=== PATIENT | male | born 1955 | race Caucasian/White ===

== ENCOUNTER 2016-07-01 16:25 | Emergency (ER) | payer OTHER ==
--- NOTE | 2016-07-01 17:56 | DIAGNOSTIC IMAGING REPORT ---
PROCEDURE: XR CHEST 2 VIEW INDICATION: CHEST PAIN, initial encounter TECHNIQUE: PA and lateral view. COMPARISON: None. FINDINGS: Lungs are clear. Cardiovascular structures are normal. Bony thorax is unremarkable. IMPRESSION: 1. Negative chest.
--- NOTE | 2016-07-01 19:17 | ED NURSING NOTES ---
Clinical Report - Nurses [facility] [address] [place] [address] 07/01/2016 16:27 [id number] TRI[facility] Triage time 16:31 Jul 01 2016. Acuity: LEVEL 3. Chief Complaint: CHEST PAIN and (High blood pressure). 16:42 07/01/16. Alert. No acute distress. SEPSIS SCREEN: Sepsis Screen. Negative (no infection suspected/documented). ROCHELLE COMA SCORE: [place] Coma Scale: 15- eyes open spontaneously (4); best verbal response- oriented x 4 (5); best motor response- obeys commands (6). --16:42 Lisbeth Quinonez 16:31 07/01/16. BP: 160/105. HR: 77. RR: 16. O2 saturation: 96%. Temp: 97.5 F (oral). Pain level now: 12/01. --16:42 Lisbeth Quinonez. Weight: 111.1 kg stated. Height/Length: 68 inches Per Patient. BMI: 37.3. --16:41 Lisbeth Quinonez. Medications Naproxen Oral 500 mg, 2x a day. --16:38 Lisbeth Quinonez Doxazosin Mesylate Oral (Tablet 1 mg) 1 tablet, daily. --16:38 Lisbeth Quinonez Gabapentin Oral 300 mg, daily. --16:39 Lisbeth Quinonez. Medication/allergy information source: the patient. --16:42 Lisbeth Quinonez. Allergies Tylenol. --16:39 Lisbeth Quinonez. History Arrived by private vehicle. Historian: patient. Accompanied by family. Primary physician (Collins). This started today. Onset. (When patient woke up). ( Pt measured his blood pressure and it measured about 170 systolic, when normally it runs about 120. Has had an upset stomach before. Has a headache that is worse than his normal headaches today, but hasn't taken medication for it.). He has had nausea. No difficulty breathing, vomiting, fever or cough. Treatment PUTTY MIXER: None. PAST MEDICAL HX: Hypertension. No history of diabetes mellitus, heart disease or lung disease. Immunizations: up-to-date. SOCIAL HX: Never smoker. No alcohol use or drug use. FALL RISK ASSESSMENT: Fall risk assessment completed. No fall risk identified. NUTRITIONAL RISK ASSESSMENT: The nutritional risk assessment revealed no deficiencies. FUNCTIONAL ASSESSMENT: Functional assessment: no impairments noted. LEARNING NEEDS ASSESSMENT: The learning needs assessment revealed no barriers. SKIN INTEGRITY ASSESSMENT: Skin integrity risk assessment completed. No skin integrity risk identified. --16:42 Lisbeth Quinonez. PROBLEMS: Arthritis. Hypertension. Otitis Externa. --16:40 Lisbeth Quinonez. ADDITIONAL SURGERIES: Appendectomy. Foot. --16:40 Lisbeth Quinonez. Assessment The patient states feels the same. GENERAL / NEURO / PSYCH: Alert. Oriented X 4. Appears in no acute distress. Patient appears calm and cooperative. RESPIRATORY: Respirations not labored. Chest nontender. CVS: Capillary refill less than 2 seconds. GI / : Abdomen soft and nontender. SKIN: Mucous membranes are pink. Skin is warm and dry. --16:42 Lisbeth Quinonez. Interventions ID band on patient. To waiting room. --16:42 Lisbeth Quinonez. NURSING PROGRESS NOTES 17:48 07/01/2016 Site #1 started via IV in the right antecubital space with an 20g angiocath, with aseptic technique and good blood return; one attempt. Blood drawn: rainbow set. Labeled in the presence of the patient and sent to the lab. Saline lock flushed with 10 mL saline. --17:48 Milena Cantu EKG time: (1813). EKG was ordered, performed by a tech and shown to the ED physician. --18:14 Deidre Salcedo ER Tech1 18:39 07/01/16. BP: 145/93. HR: 68. O2 saturation: 98%. --18:39 Liang Tovar 18:44 07/01/2016 Toradol IVP 30 mg given over 1 minute(s) via site #1. Allergies verified and confirmed 5 rights. IV patency established. IV site checked: no pain, redness, or swelling. IV flushed thoroughly pre- and post-medication administration. IVP given by RN. --18:44 Milena Cantu Reassessment after medication administered. He has had no adverse reaction. Overall patient status is the same- he states feels the same. --19:16 Milena Cantu 19:15 07/01/16. BP: 151/90. HR: 65. RR: 16. O2 saturation: 97%. --19:16 Milena Cantu. DISPOSITION / DISCHARGE 19:32 07/01/2016 Site #1 removed upon discharge. Pressure dressing applied. --19:32 Milena Cantu Departure time: 1929. Condition at departure: unchanged and stable. No learning barriers present. Discharge instructions provided and reviewed with the patient and family. Reviewed medication(s). Patient and family verbalized understanding. Written instructions provided in [place] Islander. The patient was discharged by the physician retail assistant manager. He was discharged home and accompanied by family. He left the Emergency Department ambulatory and via private vehicle. Family member driving. --19:33 Milena Cantu. Locked/Released at 07/01/2016 19:33 by Milena Cantu,
--- NOTE | 2016-07-01 19:17 | ED CLINICAL REPORT ---
Clinical Report - Physicians/Mid Levels [facility] [address] [place] [address] 07/01/2016 16:27 Patient: KHALIF AMEZQUITA Time Seen: 17:02; initial patient contact. Arrived- By private vehicle. Historian- patient. HISTORY OF PRESENT ILLNESS Chief Complaint: maldonado/ elevated bp. BLOOD PRESSURE ELEVATED. This started yesterday and is still present. (Patient reports 170 systolic blood pressure home prior to arrival, reports headache over the last 2 years, worse over the last 2 days. No injury. No emesis. Some nausea at times. Denies any active chest pain or shortness of breath. Reports he does take his antihypertensive medications, which usually makes his headache better. Denies any fevers or chills or any recent illness. Reports the headache is similar to his regular daily headaches, generalized on the left side front, as well as posteriorly.). REVIEW OF SYSTEMS No fever, nasal congestion, cough, chest pain or vomiting. No diarrhea or chills. He has had nausea. No difficulty with ambulation. All systems otherwise negative, except as recorded above. SOCIAL HISTORY Never smoker. No alcohol use or drug use. ADDITIONAL NOTES The nursing notes have been reviewed. PHYSICAL EXAM Vital Signs: 07/01/2016 16:31 BP: 160/105. HR: 77. RR: 16. O2 saturation: 96%. Temp: 97.5 F. Pain level now: 7/10. Appearance: Alert. No apparent distress. ENT: Ears normal. Nose normal. CVS: Normal heart rate and rhythm. Rhythm normal. No extra heart sounds. Respiratory: No respiratory distress. Breath sounds normal. No accessory muscle use. Abdomen: No visible injury. Soft. No abdominal tenderness, rebound tenderness or femoral pulse deficit. The bowel sounds are not abnormal. Back: Normal inspection. No CVA tenderness. Skin: Normal skin color. Neuro: Oriented X 3. No motor deficit. LABS, X-RAYS, AND EKG EKG: EKG time: (1813). No acute process. No acute ischemia. Normal EKG. Rate: 72. Normal P waves. Normal MIMI. Normal QRS complex. Normal axis. Chest X-ray: (IMPRESSION: 1. Negative chest. Electronically Final signed by:Derek Chi MD 07/01/2016 5:56:03 PM). CT Head: Normal study. (neg as discussed with DR. Chi). Laboratory Tests: CBC w Diff: (ONUR: 07/01/2016 17:45) ( [facility] Final results Test Result Flag Units (Reference) WHITE BLOOD COUNT 7.0 K/uL (4.5-11.5) RED BLOOD COUNT 4.84 M/uL (4.50-5.90) HEMOGLOBIN 15.6 gm/dL (13.5-17.5) HEMATOCRIT 45.3 % (41.0-53.0) MEAN CELL VOLUME 94 fL (80-100) MEAN CORPUSCULAR HGB 32 pg (26-34) MEAN CORPUSCULAR HGB CONC 35 g/dL (31-37) RED CELL DISTRIBUTION WIDTH 13.0 % (11.6-14.8) PLATELET COUNT 181 K/uL (150-400) NEUTROPHIL % 60.9 % (50-75) LYMPH % 28.9 % (25-40) MONO % 6.4 % (3-14) EOSINOPHIL % 3.3 % (0-4) BASOPHIL % 0.5 % (0-2) CHEM 13 PANEL: (ONUR: 07/01/2016 17:45) ( [facility] 07/01/2016 18:23) Final results Test Result Flag Units (Reference) GLUCOSE 101 mg/dL (70-110) BUN 21 H mg/dL (7-18) CREATININE 0.9 mg/dL (0.6-1.3) Estimated GFR >60 mL/min Estimated GFR- >60 mL/min Note: Persistent reduction over 3 months in eGFR<60 mL/min/1.73 m2 defines CKD. Patients with eGFR values>=60 mL/min/1.73 m2 may also have CKD if evidence ofpersistent proteinuria. Additional information may be foundat www.kidney.org. SODIUM 143 mmol/L (136-145) POTASSIUM 4.2 mmol/L (3.5-5.1) CHLORIDE 108 H mmol/L (98-107) CARBON DIOXIDE 24 mmol/L (21-32) CALCIUM 9.2 mg/dL (8.5-10.1) TOTAL PROTEIN 7.6 g/dL (6.4-8.2) ALBUMIN 4.5 g/dL (3.3-5.0) BILIRUBIN, TOTAL 0.6 mg/dL (0.0-1.0) ALKALINE PHOSPHATASE 70 U/L (46-116) AST (SGOT) 29 U/L (15-37) ALT (SGPT) 70 U/L (12-78) CPK 283 H U/L (24-260) MAGNESIUM 1.9 mg/dL (1.8-2.4) CK-MB 3.6 H ng/mL (0.5-3.2) %CKMB 1.3 % (0.0-4.0) TROPONIN I <0.05 L ng/mL (0.00-1.5) TROPONIN REFERENCE RANGE:<0.1 NEGATIVE0.1-1.5 INDETERMINANT>1.5 POSITIVE . PROGRESS AND PROCEDURES Course of Care: Patient presents with daily headaches over the last few years, worse over the last 2 days, with epigastric pain off and on over the last 2 days. Denies nausea or vomiting, neck pain. Denies any fevers or chills. Denies any trauma. At this timedifferential is broad, several hemorrhage, meningitis low on differential. Negative CT head, negative workup in the ER. Unremarkable EKG, chest x-ray. 07/01/2016 19:15 BP: 151/90. HR: 65. RR: 16. O2 saturation: 97%. Patient is stable. Symptoms better. Patient/family counseled. Differential Diagnosis: I considered migraine, cluster headache, vascular malformation, vascular dissection, malignant hypertension, cerebral venous thrombosis, bacterial meningitis, encephalitis, carbon monoxide exposure, trigeminal neuralgia and Chris-Navarro neuralgia as a possible cause of headache in this patient. This is a partial list of diagnoses considered. Disposition: Discharged. CLINICAL IMPRESSION Acute headache. Uncontrolled essential hypertension. INSTRUCTIONS (your blood pressure is improving but please have it re-checked with your DR in 3-5 days). Warnings: Further evaluation is necessary. Prescription Medications: Ultram 50 mg: take 1 orally every 6 hours for 3 days, as needed for pain. Dispense ten (10). No refills. Substitution is permissible. Follow-up: Follow up with your doctor in three days. (Electronically signed by Ladi Osorio P.A.-C 07/01/2016 19:38)
--- NOTE | 2016-07-01 19:17 | ED ORDER SUMMARY ---
..... Patient: KHALIF AMEZQUITA OrderSheet [facility] VisitID: [id number] [place] [address] 61y, M Registration Date/Time: 07/01/2016 ORDER SHEET Weight: 111.1 kg (stated) Allergies: Tylenol GENERAL ORDERS: Chest 2V Urgent (17:25 07/01/2016 EKoroleva P.A.-C) (Ack 17:32 NHouse ER Tech1) (18:12 NHouse ER Tech1) Manager Urology (Continuous) (17:25 07/01/2016 EKoroleva P.A.-C) (17:26 EBonham) Cardiac Panel Stat (17:25 07/01/2016 EKoroleva P.A.-C) (Ack 17:26 EBonham) (17:48 EBonham) EKG - ER Stat (17:25 07/01/2016 EKoroleva P.A.-C) (18:12 NHouse ER Tech1) Vitals (18:37 07/01/2016 EKoroleva P.A.-C) (18:37 MCampbell) CT Head wo Cont Urgent (18:37 07/01/2016 EKoroleva P.A.-C) (Ack 18:43 RIouse ER Tech1) (19:10 MCampbell) MEDICATION ORDERS: IV FLUIDS: IV Saline Lock (17:25 07/01/2016 EKoroleva P.A.-C) (Ack 17:[facility] (17:48 EBonham) Toradol IV 30 mg (NOW) (18:40 07/01/2016 EKoroleva P.A.-C) (18:44 EBonham) ORDER SHEET NOTES: [Electronically signed by Milena Cantu (19:33 07/01/2016)] [Electronically signed by Ladi Osorio P.A.-C (19:38 07/01/2016)] [Electronically locked/signed by Milena Cantu (19:33 07/01/2016)]
--- NOTE | 2016-07-01 19:17 | ED ORDER SUMMARY ---
..... Patient: KHALIF AMEZQUITA OrderSheet [facility] VisitID: [id number] [place] [address] 61y, M Registration Date/Time: 07/01/2016 ORDER SHEET Weight: 111.1 kg (stated) Allergies: Tylenol GENERAL ORDERS: Chest 2V Urgent (17:25 07/01/2016 EKoroleva P.A.-C) (Ack 17:32 NHouse ER Tech1) (18:12 NHouse ER Tech1) Head Of Mathematics (Continuous) (17:25 07/01/2016 EKoroleva P.A.-C) (17:26 EBonham) Cardiac Panel Stat (17:25 07/01/2016 EKoroleva P.A.-C) (Ack 17:26 EBonham) (17:48 EBonham) EKG - ER Stat (17:25 07/01/2016 EKoroleva P.A.-C) (18:12 NHouse ER Tech1) Vitals (18:37 07/01/2016 EKoroleva P.A.-C) (18:37 MCampbell) CT Head wo Cont Urgent (18:37 07/01/2016 EKoroleva P.A.-C) (Ack 18:43 LAouse ER Tech1) (19:10 MCampbell) MEDICATION ORDERS: IV FLUIDS: IV Saline Lock (17:25 07/01/2016 EKoroleva P.A.-C) (Ack 17:26 [facility] (17:48 EBonham) Toradol IV 30 mg (NOW) (18:40 07/01/2016 EKoroleva P.A.-C) (18:44 EBonham) ORDER SHEET NOTES: [Electronically signed by Milena Cantu (19:33 07/01/2016)] [Electronically signed by Ladi Osorio P.A.-C (19:38 07/01/2016)] [Electronically locked/signed by Milena Cantu (19:33 07/01/2016)]
--- NOTE | 2016-07-01 19:17 | ED NURSING NOTES ---
Clinical Report - Nurses [facility] [address] [place] [address] 07/01/2016 16:27 [id number] Triage time 16:31 Jul 01 2016. Acuity: LEVEL 3. Chief Complaint: CHEST PAIN and (High blood pressure). 16:42 07/01/16. Alert. No acute distress. SEPSIS SCREEN: Sepsis Screen. Negative (no infection suspected/documented). ROCHELLE COMA SCORE: [place] Coma Scale: 15- eyes open spontaneously (4); best verbal response- oriented x 4 (5); best motor response- obeys commands (6). --16:42 Lisbeth Quinonez 16:31 07/01/16. BP: 160/105. HR: 77. RR: 16. O2 saturation: 96%. Temp: 97.5 F (oral). Pain level now: 12/01. --16:42 Lisbeth Quinonez. Weight: 111.1 kg stated. Height/Length: 68 inches Per Patient. BMI: 37.3. --16:41 Lisbeth Quinonez. Medications Naproxen Oral 500 mg, 2x a day. --16:38 Lisbeth Quinonez Doxazosin Mesylate Oral (Tablet 1 mg) 1 tablet, daily. --16:38 Lisbeth Quinonez Gabapentin Oral 300 mg, daily. --16:39 Lisbeth Quinonez. Medication/allergy information source: the patient. --16:42 Lisbeth Quinonez. Allergies Tylenol. --16:39 Lisbeth Quinonez. History Arrived by private vehicle. Historian: patient. Accompanied by family. Primary physician (Collins). This started today. Onset. (When patient woke up). ( Pt measured his blood pressure and it measured about 170 systolic, when normally it runs about 120. Has had an upset stomach before. Has a headache that is worse than his normal headaches today, but hasn't taken medication for it.). He has had nausea. No difficulty breathing, vomiting, fever or cough. Treatment TRAPEZE PERFORMER: None. PAST MEDICAL HX: Hypertension. No history of diabetes mellitus, heart disease or lung disease. Immunizations: up-to-date. SOCIAL HX: Never smoker. No alcohol use or drug use. FALL RISK ASSESSMENT: Fall risk assessment completed. No fall risk identified. NUTRITIONAL RISK ASSESSMENT: The nutritional risk assessment revealed no deficiencies. FUNCTIONAL ASSESSMENT: Functional assessment: no impairments noted. LEARNING NEEDS ASSESSMENT: The learning needs assessment revealed no barriers. SKIN INTEGRITY ASSESSMENT: Skin integrity risk assessment completed. No skin integrity risk identified. --16:42 Lisbeth Quinonez. PROBLEMS: Arthritis. Hypertension. Otitis Externa. --16:40 Lisbeth Quinonez. ADDITIONAL SURGERIES: Appendectomy. Foot. --16:40 Lisbeth Quinonez. Assessment The patient states feels the same. GENERAL / NEURO / PSYCH: Alert. Oriented X 4. Appears in no acute distress. Patient appears calm and cooperative. RESPIRATORY: Respirations not labored. Chest nontender. CVS: Capillary refill less than 2 seconds. GI / : Abdomen soft and nontender. SKIN: Mucous membranes are pink. Skin is warm and dry. --16:42 Lisbeth Quinonez. Interventions ID band on patient. To waiting room. --16:42 Lisbeth Quinonez. NURSING PROGRESS NOTES 17:48 07/01/2016 Site #1 started via IV in the right antecubital space with an 20g angiocath, with aseptic technique and good blood return; one attempt. Blood drawn: rainbow set. Labeled in the presence of the patient and sent to the lab. Saline lock flushed with 10 mL saline. --17:48 Milena Cantu EKG time: (1813). EKG was ordered, performed by a tech and shown to the ED physician. --18:14 Deidre Salcedo ER Tech1 18:39 07/01/16. BP: 145/93. HR: 68. O2 saturation: 98%. --18:39 Liang Tovar 18:44 07/01/2016 Toradol IVP 30 mg given over 1 minute(s) via site #1. Allergies verified and confirmed 5 rights. IV patency established. IV site checked: no pain, redness, or swelling. IV flushed thoroughly pre- and post-medication administration. IVP given by RN. --18:44 Milena Cantu Reassessment after medication administered. He has had no adverse reaction. Overall patient status is the same- he states feels the same. --19:16 Milena Cantu 19:15 07/01/16. BP: 151/90. HR: 65. RR: 16. O2 saturation: 97%. --19:16 Milena Cantu. DISPOSITION / DISCHARGE 19:32 07/01/2016 Site #1 removed upon discharge. Pressure dressing applied. --19:32 Milena Cantu Departure time: 1929. Condition at departure: unchanged and stable. No learning barriers present. Discharge instructions provided and reviewed with the patient and family. Reviewed medication(s). Patient and family verbalized understanding. Written instructions provided in Thai. The patient was discharged by the physician chiropractor assistant. He was discharged home and accompanied by family. He left the Emergency Department ambulatory and via private vehicle. Family member driving. --19:33 Milena Cantu. Locked/Released at 07/01/2016 19:33 by Milena Cantu,
--- NOTE | 2016-07-01 19:39 | ED MAR SUMMARY ---
..... Medication Administration Record [facility] [address] [place] [address] Patient: KHALIF AMEZQUITA Visit ID: [id number] 61y, M Weight: 111.1 kg Height/Length: 68 in BMI: 37.3 ALLERGIES: Tylenol Given 18:44 07/01/2016 Milena aCntu, Medication Administered: TORADOL [IVP], Dose: 30 mg IVP over 1 minute(s), Site: #1 right AC. Medication Ordered: Toradol IV 30 mg (NOW).
--- NOTE | 2016-07-01 19:39 | ED DISCHARGE INSTRUCTIONS ---
Patient: KHALIF AMEZQUITA General Instructions [facility] VisitID: [id number] [place] [address] 61y, M Registration Date/Time: 07/01/2016 Acute headache. Uncontrolled essential hypertension. INSTRUCTIONS (your blood pressure is improving but please have it re-checked with your DR in 3-5 days). Warnings: Further evaluation is necessary. Prescription Medications: Ultram 50 mg: take 1 orally every 6 hours for 3 days, as needed for pain. Dispense ten (10). No refills. Substitution is permissible. Follow-up: Follow up with your doctor in three days. ADDITIONAL INFORMATION High Blood Pressure --Established High Blood Pressure (Hypertension) is a chronic disease. The cause is unknown in most cases. It can usually be controlled with lifestyle changes and/or medicines. Symptoms of high blood pressure may include headache, dizziness, visual changes, chest pain and shortness of breath. Sometimes it causes no symptoms at all. However, even if there are no symptoms, untreated high blood pressure increases the risk of heart attack, also known as acute myocardial infarction, or AMI, and stroke. It is a serious health risk and should not be ignored. A normal blood pressure is 120/80 or less. The first (top) number is the "systolic" pressure. The second (bottom) number is the "diastolic" pressure. Hypertension exists when either the top number is 140 or higher, OR the bottom number is 90 or higher on repeated measurements. Home Care: All patients with high blood pressure should do the following to lower their pressure. If you are on medicines, then these methods may reduce or eliminate your need for medicines in the future. Begin a weight loss program if you are overweight. Reduce your salt intake. Avoid high salt foods (olives, pickles, smoked meats, salted potato chips, etc.). Do not add salt to your food at the table. Use only small amounts of salt when cooking. Begin an exercise program. Discuss with your doctor what type of exercise program would be best for you. It doesn't have to be difficult. Even brisk walking for 20 minutes three times a week is a good form of exercise. Avoid medicines which contain heart stimulants. This includes many cold and sinus decongestant pills and sprays as well as diet pills. Check the warnings about hypertension on the label. Stimulants such as amphetamine or cocaine could be lethal for someone with hypertension. Never take these. Limit your caffeine intake or switch to caffeine-free products. Stop smoking. If you are a long-time smoker, this can be hard. Enroll in a stop-smoking program to improve your chance of success. Learning how to handle stress better is an important part of any program to lower blood pressure. Learn about relaxation methods such as meditation, yoga or biofeedback. If medicines were prescribed, take them exactly as directed. Missing doses may cause your blood pressure get out of control. Consider buying an automatic blood pressure machine (available at most pharmacies). Use this to monitor your blood pressure at home and report the results to your doctor. Follow Up: Regular visits to your own physician for blood pressure checks and medicine adjustment is an important part of your care. Make a follow-up appointment as directed by our staff. Get Prompt Medical Attention if any of the following occur: Chest pain or shortness of breath Severe headache Throbbing or rushing sound in the ears Nosebleed Sudden severe abdominal pain Extreme drowsiness, confusion or fainting Dizziness or vertigo (dizziness with spinning sensation) Weakness of an arm or leg or one side of the face Difficulty with speech or vision You have been given the following additional information: Hypertension, Established (Electronically signed by Ladi Osorio P.A.-C 07/01/2016 19:38)
--- NOTE | 2016-07-01 19:39 | ED MED RECONCILIATION SUMMARY ---
Patient: KHALIF AMEZQUITA Medication Reconciliation Report [facility] VisitID: [id number] [address] [place] [address] 61y, M Registration Date/Time: 07/01/2016 Weight: 111.1 kg Height/Length: 68 in. BMI: 37.3 ALLERGIES: Tylenol The patient's Home Medications are listed below: THE FOLLOWING MEDICATIONS NEED TO BE RECONCILED: Doxazosin Mesylate Oral (1 mg) 1 tablet, daily Gabapentin Oral 300 mg, daily Naproxen Oral 500 mg, 2x a day The source(s) of the original Home Medication information: patient The following Medications were given to the patient in the Emergency Department: Toradol [IVP] IVP 30 mg, administered: 07/01/2016 6:44:00 PM The following Medications were prescribed to the patient: Ultram 50 mg: take 1 orally every 6 hours for 3 days, as needed for pain. Dispense ten (10). No refills. Substitution is permissible. -- Ladi Osorio P.A.-C
--- NOTE | 2016-07-01 19:39 | ED MAR SUMMARY ---
..... Medication Administration Record [facility] [address] [place] [address] Patient: KHALIF AMEZQUITA Visit ID: [id number] 61y, M Weight: 111.1 kg Height/Length: 68 in BMI: 37.3 ALLERGIES: Tylenol Given 18:44 07/01/2016 Milena Cantu, Medication Administered: TORADOL [IVP], Dose: 30 mg IVP over 1 minute(s), Site: #1 right AC. Medication Ordered: Toradol IV 30 mg (NOW).
--- NOTE | 2016-07-01 19:39 | ED MED RECONCILIATION SUMMARY ---
Patient: KHALIF AMEZQUITA Medication Reconciliation Report [facility] VisitID: [id number] [address] [place] [address] 61y, M Registration Date/Time: 07/01/2016 Weight: 111.1 kg Height/Length: 68 in. BMI: 37.3 ALLERGIES: Tylenol The patient's Home Medications are listed below: THE FOLLOWING MEDICATIONS NEED TO BE RECONCILED: Doxazosin Mesylate Oral (1 mg) 1 tablet, daily Gabapentin Oral 300 mg, daily Naproxen Oral 500 mg, 2x a day The source(s) of the original Home Medication information: patient The following Medications were given to the patient in the Emergency Department: Toradol [IVP] IVP 30 mg, administered: 07/01/2016 6:44:00 PM The following Medications were prescribed to the patient: Ultram 50 mg: take 1 orally every 6 hours for 3 days, as needed for pain. Dispense ten (10). No refills. Substitution is permissible. -- Ladi Osorio P.A.-C
--- NOTE | 2016-07-01 20:16 | DIAGNOSTIC IMAGING REPORT ---
PROCEDURE: CT HEAD WITHOUT CONTRAST INDICATION: HEADACHE, initial encounter TECHNIQUE: Noncontrast axial images with sagittal and coronal reformations. COMPARISON: None. FINDINGS: Sulci, ventricular system, and brain parenchyma are normal. No evidence of acute intracranial process. Left nasal septal deviation. Visualized mastoids and sinuses are clear. IMPRESSION: 1. Negative non-enhanced head CT. 2. Findings discussed with Rose Osorio at 07:02 p.m., [place] Standard Time
== END 2016-07-01 19:32 | disposition home or self-care (01) ==
LOC: ED SRH 16:25
DX: R51 Headache (principal); I10 Essential (primary) hypertension
CPT/HCPCS: 90100; 90616; 90617; 92610; 92720; 95059